=== PATIENT | female | born 1985 | race Two or more races ===

== ENCOUNTER → 2018-09-14 | Outpatient (CLI) | payer OTHER | LOC: FIMAGING 09:37 | PROVIDERS: ATTEND Advanced Practice Midwife | DX: O09.812 Supervision of pregnancy resulting from assisted reproductive technology, second trimester (principal); E03.9 Hypothyroidism, unspecified; Z3A.19 19 weeks gestation of pregnancy ==

== ENCOUNTER → 2018-10-19 | Outpatient (CLI) | payer OTHER | LOC: FIMAGING 08:54 | PROVIDERS: ATTEND Advanced Practice Midwife | DX: O09.02 Supervision of pregnancy with history of infertility, second trimester (principal); O09.522 Supervision of elderly multigravida, second trimester; O99.282 Endocrine, nutritional and metabolic diseases complicating pregnancy, second trimester; E03.9 Hypothyroidism, unspecified; Z3A.22 22 weeks gestation of pregnancy ==

== ENCOUNTER → 2018-11-30 | Outpatient (CLI) | payer OTHER | LOC: FIMAGING 12:59 | PROVIDERS: ATTEND Advanced Practice Midwife | DX: O28.3 Abnormal ultrasonic finding on antenatal screening of mother (principal); O09.813 Supervision of pregnancy resulting from assisted reproductive technology, third trimester; Z3A.30 30 weeks gestation of pregnancy ==

== ENCOUNTER 2019-02-02 20:58 | Inpatient (IN) | payer OTHER ==
[2019-02-02] MEDS ORDERED: EPSOM SALT 454 GM TP PRN (21:14)
[2019-02-02] MEDS ORDERED: TERBUTALINE SULFATE 1 MG/ML VIAL IV PRN (21:14)
[2019-02-02] MEDS ORDERED: LR 1,000 ML IV PRN (21:14)
[2019-02-02] MEDS ORDERED: AMMONIA AROMATIC 1 EACH AMP IH PRN (21:14)
[2019-02-02] MEDS ORDERED: MISOPROSTOL 200 MCG TAB PO PRN (21:14)
[2019-02-02] MEDS ORDERED: OLIVE OIL 118 ML BTL MISC PRN (21:14)
[2019-02-02] MEDS ORDERED: OXYTOCIN/RINGERS LACTATE 1,000 ML IV PRN (21:14)
[2019-02-02] MEDS ORDERED: IBUPROFEN 600 MG TAB PO PRN (21:14)
[2019-02-02] MEDS ORDERED: LIDOCAINE 1% 300 MG/30 ML SDV SC PRN (21:14)
[2019-02-02] MEDS ORDERED: OLIVE OIL 118 ML BTL MISC ONE (21:28)
[2019-02-02] MEDS ORDERED: MISOPROSTOL 200 MCG TAB ONE (21:28)
[2019-02-02] MEDS ORDERED: OXYTOCIN 10 UNIT/ML VIAL ONE (21:28)
[2019-02-02] MEDS ORDERED: TERBUTALINE SULFATE 1 MG/ML VIAL ONE (21:28)
[2019-02-02] MEDS ORDERED: AMMONIA AROMATIC 1 EACH AMP IH ONE (21:28)
[2019-02-02] MEDS ORDERED: LIDOCAINE 1% 300 MG/30 ML SDV ONE (21:28)
[2019-02-02 21:35] LABS: PLATELET COUNT 212 10^3/uL (150-400)
[2019-02-02] MEDS ORDERED: BUPIVACAINE 0.25% 10 ML SDV ONE (21:52)
[2019-02-02] MEDS ORDERED: fentaNYL 2MCG/ML/BUP 0.1% RTU 100 ML EP SCH (22:00)
[2019-02-02] MEDS ORDERED: ONDANSETRON 4 MG/2 ML VIAL IVP PRN (22:14)
[2019-02-02] MEDS ORDERED: PHENYLEPHRINE HCL 100 MCG/ML SYR IVP PRN (22:14)
[2019-02-02] MEDS ORDERED: NALOXONE HCL 0.4 MG/ML INJ IVP PRN (22:14)
--- NOTE | 2019-02-02 22:14 | PREANESOB ---
Anesthesia Allergies/Adverse Reactions: Allergy/AdvReac Type Severity Reaction Status Date / Time No Allergies [NKDA] Allergy Verified 02/02/19 21:14 Home Medications: Medication Instructions Recorded Thyroid 02/02/19 Visit Medications: Generic Name Dose Route Start Last Admin Trade Name Freq PRN Reason Stop Dose Admin Ammonia (Aromatic Spirit) 1 each 02/02/19 21:14 Ammonia Aromatic IH 02/12/19 21:13 ONCE PRN Fainting Lactated Ringer's 1,000 mls @ 0 mls/hr 02/02/19 21:14 Lr IV 02/03/19 21:13 PRN PRN SEE PROTOCOL CONDITIONS Protocol Per Protocol Oxytocin/Lactated Ringer's 1,000 mls @ 0 mls/hr 02/02/19 21:14 Pitocin 20 Units/Lr (Premix) IV PRN PRN Post bleeding As Directed Fentanyl/Bupivacaine HCl 100 mls @ 0 mls/hr 02/02/19 22:00 Fentanyl/Bupivacaine/Ns 2 Mcg/Ml 0.1% (Premix EP 02/12/19 21:59 CONT EFREM Protocol As Directed Ibuprofen 600 mg 02/02/19 21:14 Motrin PO ONCE PRN post , pain Lidocaine HCl 300 mg 02/02/19 21:14 Lidocaine Hcl 1% SC 08/01/19 21:13 ONCE PRN episiotomy Magnesium Sulfate 454 gm 02/02/19 21:14 Epsom Salt TP 08/01/19 21:13 Q1H PRN perineal discomfort Misoprostol 800 - 1,000 mcg 02/02/19 21:14 Cytotec PO 08/01/19 21:13 ONCE PRN Vaginal Atony/Bleeding Burns Oil 118 ml 02/02/19 21:14 Sweet Oil MISC 08/01/19 21:13 ONCE PRN perineal massage Terbutaline Sulfate 0.25 mg 02/02/19 21:14 Brethine IV 08/01/19 21:13 ONCE PRN Tachysystole Discontinued Medications Generic Name Dose Route Start Last Admin Trade Name Freq PRN Reason Stop Dose Admin Ammonia (Aromatic Spirit) Confirm 02/02/19 21:28 Ammonia Aromatic Administered 02/02/19 21:29 Dose 1 each IH .STK-MED ONE Bupivacaine HCl Confirm 02/02/19 21:52 Sensorcaine 0.25% Sdv Administered 02/02/19 21:53 Dose 10 ml .ROUTE .STK-MED ONE Lidocaine HCl Confirm 02/02/19 21:28 Lidocaine Hcl 1% Administered 02/02/19 21:29 Dose 300 mg .ROUTE .STK-MED ONE Misoprostol Confirm 02/02/19 21:28 Cytotec Administered 02/02/19 21:29 Dose 1,000 mcg .ROUTE .STK-MED ONE Burns Oil Confirm 02/02/19 21:28 Sweet Oil Administered 02/02/19 21:29 Dose 118 ml MISC .STK-MED ONE Oxytocin Confirm 02/02/19 21:28 Pitocin Administered 02/02/19 21:29 Dose 40 unit .ROUTE .STK-MED ONE Terbutaline Sulfate Confirm 02/02/19 21:28 Brethine Administered 02/02/19 21:29 Dose 1 mg .ROUTE .STK-MED ONE Labs: 02/02/19 21:15 - Plan Consent Signed and on Chart: Yes Patient/Guardian Understands and Agrees to Plan: Yes Urgent/Emergent Case: Amaya leon completed preop but documented later for safe timely pt care
--- NOTE | 2019-02-02 22:24 | PDGENHP ---
History and Physical History and Physical: Care: [facility] HPI: Denise Calle is a 33yo with IUP@37-6 weeks that presents to L&D with complaints of contractions since this afternoon. states that have progressively intensified. She denies any LOF, Vb. She reports +FM. 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, anemia Review of Systems: Constitutional: Denies any fever, chills, or fatigue HEENT: denies any visual changes, difficulty swallowing, hearing loss Cardiovascular: Denies any chest pain, palpitations, leg swelling Respiratory: denies any cough, wheezing, or shortness of breathe GI: Denies any nausea, vomiting, diarrhea, constipation : denies any dysuria, urgency, frequency, vaginal bleeding Musculoskeletal: denies any muscle or bone pain Skin: denies any rashes Neuro: denies any headache, seizures, lightheadedness, dizziness, or loss of consciousness Psychiatric: denies any depression, anxiety, or SI/HI thoughts HISTORY: Previous OB history: 2016 6#, chemical Past medical history: hypothyroid Past surgical history: oral surgery 2000 Social: Denies any alcohol, tobacco, or drug use. - Maurilio; son Paul Family history: Not relevant Medications: PNV, levothyroxine Allergies (list reaction): NKDA LABS: Rh: A+ ABS: Neg Rubella: Immune HbsAg: NR HIV: NR VDRL: NR 1hr: 106 GC: Neg Chlamydia: Neg Pap: Normal GBS: neg BMI: (prepreg)22 PHYSICAL EXAM: Constitutional: WN, A&Ox3 HEENT: normocephalic atraumatic, supple Skin: Warm, dry, intact Heart: RRR, no murmur Chest: CTA-B Abdomen: Soft, nontender, gravid SVE: /-1 (per RN) Extremities: no edema, negative homans sign Neuro: grossly normal Psych: normal affect assessment: FHT baseline 125 +accels, no decels, moderate variability Contractions: toco irregular Assessment: * 33yo with IUP@ 37-6wks * Active labor * GBS Negative * Cat 1 FHR tracing Plan: * admit to L&D * MK per pt request * reassess 2hr/PRN * anticipate Today's visit was approximately 30 min, of which >50% of visit 20 min, was spent face to face with pt on direct counseling/coordination of care.
[2019-02-02] MEDS ORDERED: LR 500 ML IV SCH (22:30)
[2019-02-03] MEDS ORDERED: HYDROCORTISONE 0.5% CREAM TP PRN (00:54)
[2019-02-03] MEDS ORDERED: SIMETHICONE 80 MG TAB CHEW PO PRN (00:54)
--- NOTE | 2019-02-03 00:57 | OBDEL ---
Info Type: Vaginal Presentation at Delivery: Vertex L&D Analgesia/Anesthesia Type: Epidural GBS+: No Indications for Delivery: Spontaneous Labor Vaginal Delivery - Delivery Provider Delivery Physician/CNM: Rachna Ribeiro - Labor and Delivery Onset of Contractions Date: 02/02/19 Onset of Contractions Time: 17:30 Onset of Contractions Type: Spontaneous Rupture of Membranes Date: 02/02/19 Rupture of Membranes Time: 22:30 Rupture of Membranes Type: Artificial Amniotic Fluid Color: Clear Dilation Complete Date: 02/03/19 Dilation Complete Time: 00:15 Placenta Delivery Date: 02/03/19 Placenta Delivery Time: 00:34 Total Hours of Labor: 7 Non-surgical Procedures: Amniotomy Vaginal Sponge Count Correct: Yes Vaginal Needle Count Correct: Yes Vaginal Sweep Performed: Yes EBL: 350 Delivery Events: Nuchal Cord Delivery Comment: delivered without complications. spontaneous cry. baby to mothers chest. Data PAULO: 02/07/19 Gestational Age: 39 week(s) and 3 day(s) Martin Delivery Date: 02/03/19 Delivery Time: 00:20 Sex of : Female Score (1 Min): 8 Score (5 Min): 9 ICD10 Worksheet Patient Problems: Problems Problem Status Onset Nuchal cord, single gestation Acute with 39 completed weeks gestation Acute (spontaneous vaginal delivery) Acute - ICD10 Problem Qualifiers (1) (spontaneous vaginal delivery) (2) Nuchal cord, single gestation
[2019-02-03] MEDS ORDERED: OXYTOCIN/RINGERS LACTATE 1,000 ML IV SCH (01:00)
[2019-02-03] MEDS: IBUPROFEN 600 MG TAB PO PRN ×4 (01:00→17:55)
[2019-02-03] MEDS: ACETAMINOPHEN 325 MG TAB PO PRN ×3 (06:33→17:55)
[2019-02-03] MEDS: DOCUSATE SODIUM 100 MG CAP PO PRN (09:13)
[2019-02-03] MEDS ORDERED: EPSOM SALT 454 GM TP ONE (10:19)
[2019-02-03] MEDS: oxyCODONE IR 5 MG TAB PO PRN (13:43)
[2019-02-04] MEDS: ACETAMINOPHEN 325 MG TAB PO PRN ×3 (00:17→11:47)
[2019-02-04] MEDS: IBUPROFEN 600 MG TAB PO PRN ×3 (00:17→11:44)
[2019-02-04] MEDS: oxyCODONE IR 5 MG TAB PO PRN (00:21)
[2019-02-04 08:15] VITALS: BP 88/55
--- NOTE | 2019-02-04 09:15 | OBGCSDC ---
General Delivery Information - General Info : 2 Para: 1 Abortions: 0 Type: Vaginal L&D Analgesia/Anesthesia Type: Epidural Admission Date: 02/02/19 Labs: Patient ABO/Rh A POSITIVE 02/02/19 21:15 Hct 33.8 % (38.0-47.0) L 02/03/19 06:50 - Hospital Course : 02/04/19 09:14 no c/o. pain management effective. ready to go home today. BF well. Vaginal - Delivery Provider Delivery Physician/CNM: Rachna Ribeiro - Diagnosis Labor: Spontaneous Rupture of Membranes Type: Artificial Amniotic Fluid Color: Clear Delivery Events: Nuchal Cord - Procedures Non-surgical Procedures: Amniotomy - Delivery Non-surgical Procedures: Amniotomy EBL: 350 Data PAULO: 02/07/19 Gestational Age: 39 week(s) and 4 day(s) Martin Delivery Date: 02/03/19 Delivery Time: 00:20 Sex of : Female Score (1 Min): 8 Score (5 Min): 9 Discharge Information - Discharge Information Instruction/Follow Up: Two Weeks, Four Weeks, Six Weeks
--- NOTE | 2019-02-04 10:06 | OBGCSDC ---
General Delivery Information - General Info : 2 Para: 1 Abortions: 0 Type: Vaginal L&D Analgesia/Anesthesia Type: Epidural Admission Date: 02/02/19 Labs: Patient ABO/Rh A POSITIVE 02/02/19 21:15 Hct 33.8 % (38.0-47.0) L 02/03/19 06:50 Vaginal - Delivery Provider Delivery Physician/CNM: Rachna Ribeiro - Diagnosis Labor: Spontaneous Rupture of Membranes Type: Artificial Amniotic Fluid Color: Clear Delivery Events: Nuchal Cord - Procedures Non-surgical Procedures: Amniotomy - Delivery Non-surgical Procedures: Amniotomy EBL: 350 Data PAULO: 02/07/19 Gestational Age: 39 week(s) and 4 day(s) Martin Delivery Date: 02/03/19 Delivery Time: 00:20 Sex of Infant: Female Score (1 Min): 8 Score (5 Min): 9 Discharge Information - Discharge Information Condition: Good
[2019-02-04] MEDS ORDERED: LEVOTHYROXINE 50 MCG TAB PO SCH (11:15)
[2019-02-04] MEDS: DOCUSATE SODIUM 100 MG CAP PO PRN (11:43)
--- NOTE | 2019-02-07 07:11 | POSTANESTH ---
Post Anesthetic Evaluation Cardiovascular Status: Normal, Stable Respiratory Status: Normal, Stable Level of Consciousness/Mental Status: Can Participate in Eval Pain Control: Adequate, Prn Tx Ordered Nausea/Vomiting Control: Adequate, Prn Tx Ordered Complications Possibly Related to Anesthesia: None Noted
== END 2019-02-04 13:43 | disposition home or self-care (01) | DRG 807 ==
LOC: OBSVTOIN 20:58 → FLD 20:58 → FOB 02-03 03:15
PROVIDERS: ADMIT Advanced Practice Midwife; ATTEND Advanced Practice Midwife
DX: O99.013 Anemia complicating pregnancy, third trimester (principal); O69.82X0 Labor and delivery complicated by other cord entanglement, without compression, not applicable or unspecified; O99.283 Endocrine, nutritional and metabolic diseases complicating pregnancy, third trimester; E03.9 Hypothyroidism, unspecified; Z3A.39 39 weeks gestation of pregnancy; Z37.0 Single live birth
CPT/HCPCS: J2590; J3105